=== PATIENT | female | born 1990 | race Caucasian/White ===

== ENCOUNTER 2017-05-15 13:30 | Emergency (ER) | payer SELFPAY ==
[2017-05-15] MEDS ORDERED: NORMAL SALINE 1000 ML 1,000 ML IV ONE (14:54)
[2017-05-15 15:26] LABS: ABSOLUTE LYMPHOCYTES (AUTO) 1.4 10^3/uL (0.5-4.7); ABSOLUTE MONOCYTES (AUTO) 0.8 10^3/uL (0.1-1.4); ABSOLUTE NEUT (AUTO) 6.4 10^3/uL (1.7-8.2); BASOPHILS % (AUTO) 0.3 % (0-2); EOSINOPHILS % (AUTO) 0.2 % (0-6); HEMATOCRIT 37.6 % (36.0-47.0); HGB HCT DIFFERENCE 1.4; LYMPHOCYTES % (AUTO) 16.3 % (13-45); MEAN CORPUSCULAR HEMOGLOBIN 30.5 pg (27.0-33.4); MEAN CORPUSCULAR HGB CONC 34.5 g/dL (32.0-36.0); MEAN CORPUSCULAR VOLUME 88 fl (80-97); MONOCYTES % (AUTO) 9.1 % (3-13); RED BLOOD COUNT 4.26 10^6/uL (3.72-5.28); RED CELL DISTRIBUTION WIDTH 13.8 % (11.5-14.0); SEGMENTED NEUTROPHILS % (AUTO) 74.1 % (42-78); WHITE BLOOD COUNT 8.7 10^3/uL (4.0-10.5)
[2017-05-15 15:49] LABS: ALANINE AMINOTRANSFERASE 82 U/L (9-52); ALBUMIN 4.3 g/dL (3.5-5.0); ALKALINE PHOSPHATASE 52 U/L (38-126); ANION GAP 13 (5-19); ASPARTATE AMINO TRANSFERASE 47 U/L (14-36); BILIRUBIN,DIRECT 0.4 mg/dL (0.0-0.4); BILIRUBIN,TOTAL 0.6 mg/dL (0.2-1.3); BLOOD UREA NITROGEN 9 mg/dL (7-20); CALCIUM 9.4 mg/dL (8.4-10.2); CARBON DIOXIDE 27 mmol/L (22-30); CHLORIDE 100 mmol/L (98-107); CREATININE RESULT 0.73 mg/dL (0.52-1.25); GLUCOSE 84 mg/dL (75-110); POTASSIUM 4.1 mmol/L (3.6-5.0); SODIUM 140.3 mmol/L (137-145); TOTAL PROTEIN 7.4 g/dL (6.3-8.2)
[2017-05-15] MEDS ORDERED: HYDROCODONE/ACETAMINOPHEN 5-325 MG TABLET PO ONE (15:53)
[2017-05-15 16:25] LABS: AMORPHOUS SEDIMENT,URINE TRACE /HPF; APPEARANCE,URINE SLIGHTLY-CLOUDY; BILIRUBIN,URINE NEGATIVE (NEGATIVE); GLUCOSE, URINE NEGATIVE (NEGATIVE); KETONES,URINE NEGATIVE (NEGATIVE); LEUKOCYTE ESTERASE,URINE MODERATE (NEGATIVE); NITRITE,URINE NEGATIVE (NEGATIVE); PROTEIN,URINE NEGATIVE (NEGATIVE); URINE SPECIFIC GRAVITY 1.014; UROBILINOGEN,URINE NEGATIVE mg/dL (<2.0)
--- NOTE | 2017-05-15 17:45 | RADIOLOGY REPORT (SQ) ---
EXAM DESCRIPTION: CT ABD/PELVIS WITH IV ONLY COMPLETED DATE/TIME: 05/15/2017 5:08 pm REASON FOR STUDY: rlq pain COMPARISON: None. TECHNIQUE: CT scan of the abdomen and pelvis performed using helical scanning technique with dynamic intravenous contrast injection. No oral contrast. Images reviewed with lung, soft tissue, and bone windows. Reconstructed coronal and sagittal MPR images reviewed. Delayed images for evaluation of the urinary system also acquired. All images stored on PACS. All CT scanners at this facility use dose modulation, iterative reconstruction, and/or weight based d osing when appropriate to reduce radiation dose to as low as reasonably achievable (ALARA). [facility]: Dose Right [facility]: CareDose [facility]: Dose Right [facility]: Teradose 4D [facility]: [employer] CONTRAST TYPE AND DOSE: contrast/concentration: Isovue 370.00 mg/ml; Total Contrast Delivered: 81.0 ml; Total Saline Delivered: 58.0 ml RENAL FUNCTION: Creatinine 0.7 BUN 9 RADIATION DOSE: Up-to-date CT equipment and radiation dose reduction techniques were employed. CTDIv ol: 7.6 - 10.4 mGy. DLP: 960 mGy-cm.. LIMITATIONS: None. FINDINGS: LOWER CHEST: No significant findings. No nodules or infiltrates. LIVER: Normal size. No masses. No dilated ducts. SPLEEN: Normal size. No focal lesions. PANCREAS: No masses. No significant calcifications. No adjacent inflammation or peripancreatic fluid collections. Pancreatic duct not dilated. GALLBLADDER: No identified stones by CT criteria. No inflammatory changes to suggest cholecystitis. ADRENAL GLANDS: No significant masses or asymmetry. RIGHT KIDNEY AND URETER: No solid masses. No significant calcifications. No hydronephrosis or hyd roureter. LEFT KIDNEY AND URETER: No solid masses. No significant calcifications. No hydronephrosis or hydr oureter. AORTA AND VESSELS: No aneurysm. No dissection. Renal arteries, SMA, celiac without stenosis. RETROPERITONEUM: No retroperitoneal adenopathy, hemorrhage or masses. BOWEL AND PERITONEAL CAVITY: No masses or inflammatory changes. No free fluid or peritoneal masses. APPENDIX: The appendix appears to be of normal caliber but is not seen in its entirety. There is no inflammatory mass in the right lower quadrant. PELVIS: No mass. No free fluid. Normal bladder. ABDOMINAL WALL: No masses. No hernias. BONES: No significant or acute findings. OTHER: No other significant finding. IMPRESSION: Appendix as described. No other significant findings in the abdomen or pelvis. TECHNICAL DOCUMENTATION: JOB ID: [id number] Quality ID # [id number]: Final reports with documentation of one or more dose reduction techniques (e.g., Au tomated exposure control, adjustment of the mA and/or kV according to patient size, use of iterative reconstruction technique) 2010 [employer]- All Rights Reserved
[2017-05-15] MEDS ORDERED: PREDNISONE 20 MG TABLET PO ONE (18:13)
--- NOTE | 2017-05-15 18:13 | ER Document Report ---
ED General - General Chief Complaint: Abdominal Pain Stated Complaint: SORE THROAT Time Seen by Provider: 05/15/17 14:53 Mode of Arrival: Ambulatory Information source: Patient Notes: Patient presents with fever and severe sore throat. She also has some right lower quadrant abdominal pain. Pain in the throat is worse with swallowing and better when she does not swallow. It is a sharp and burning sensation. It is severe and constant. She states it feels similar to mono and strep throat that she has had before. She has had some nausea but no vomiting. She has had decreased appetite. No problems with vaginal discharge or bleeding. TRAVEL OUTSIDE OF THE [place] IN LAST 30 DAYS: No - Related Data Allergies/Adverse Reactions: ketorolac [From Toradol] Allergy (Verified 05/15/17 14:31) morphine [Morphine] Allergy (Verified 05/15/17 13:48) rash tramadol Allergy (Verified 05/15/17 14:32) Past Medical History - General Information source: Patient - Social History Smoking Status: Never Smoker Chew tobacco use (# tins/day): No Frequency of alcohol use: None Drug Abuse: None Family History: Reviewed & Not Pertinent Patient has suicidal ideation: No Patient has homicidal ideation: No Renal/ Medical History: Denies: Hx Peritoneal Dialysis GI Medical History: Reports: Hx Hepatitis - C Psychiatric Medical History: Reports: Hx Depression Infectious Medical History: Reports: Hx Hepatitis - C Past Surgical History: Reports: Hx Section, Hx Tubal Ligation - Immunizations Hx Diphtheria, Pertussis, Tetanus Vaccination: No - unknown Review of Systems - Review of Systems Constitutional: Chills, Fever EENT: denies: Nose congestion, Nose discharge Cardiovascular: denies: Chest pain, Palpitations Respiratory: Cough. denies: Short of breath -: Yes All other systems reviewed and negative Physical Exam - Vital signs Vitals: Temp Pulse Resp BP Pulse Ox 99.5 F 102 H 12 116/99 H 98 05/15/17 13:47 05/15/17 13:47 05/15/17 13:47 05/15/17 13:47 05/15/17 13:47 Interpretation: Hypertensive - General General appearance: Appears well, Alert In distress: None - HEENT Head: Normocephalic, Atraumatic Eyes: Normal Pupils: PERRL Nasal: Normal Mouth/Lips: Normal Mucous membranes: Moist Pharynx: Erythema, Exudate Neck: Normal - Respiratory Respiratory status: No respiratory distress Chest status: Nontender Breath sounds: Normal Chest palpation: Normal - Cardiovascular Rhythm: Regular Heart sounds: Normal auscultation Murmur: No - Abdominal Inspection: Normal Distension: No distension Bowel sounds: Normal Tenderness: Other - Patient has right lower quadrant tenderness to palpation no rebound or guarding Organomegaly: No organomegaly - Back Back: Normal, Nontender - Extremities General upper extremity: Normal inspection, Nontender, Normal color, Normal ROM , Normal temperature General lower extremity: Normal inspection, Nontender, Normal color, Normal ROM , Normal temperature, Normal weight bearing. No: Lelia's sign - Neurological Neuro grossly intact: Yes Cognition: Normal Orientation: AAOx4 [place] Coma Scale Eye Opening: Spontaneous [place] Coma Scale Verbal: Oriented [place] Coma Scale Motor: Obeys Commands [place] Coma Scale Total: 15 Speech: Normal Motor strength normal: LUE, RUE, LLE, RLE Sensory: Normal - Psychological Associated symptoms: Normal affect, Normal mood - Skin Skin Temperature: Warm Skin Moisture: Dry Skin Color: Normal Course - Vital Signs Vital signs: Temp Pulse Resp BP Pulse Ox 99.5 F 102 H 12 116/99 H 98 05/15/17 13:47 05/15/17 13:47 05/15/17 13:47 05/15/17 13:47 05/15/17 13:47 - Laboratory Result Diagrams: 05/15/17 15:06 05/15/17 15:06 Laboratory results interpreted by me: 05/15/17 05/15/17 15:06 15:06 AST 47 H ALT 82 H Urine Blood SMALL H Ur Leukocyte Esterase MODERATE H - Diagnostic Test Radiology reviewed: Image reviewed, Reports reviewed - Abdominal CT scan shows no evidence of appendicitis Discharge - Discharge Clinical Impression: Strep throat Condition: Stable Disposition: HOME, SELF-CARE Instructions: Strep Throat ([facility]) Additional Instructions: Please call your primary care physician as soon as possible to arrange follow-up Your blood pressure is mildly elevated. Please have this rechecked within 1 week by your physician. Prescriptions: Amoxicillin 500 mg PO TID 10 Days #30 capsule Prednisone [Deltasone 20 mg Tablet] 3 tab PO DAILY 5 Days tablet Forms: Elevated Blood Pressure, Return to Work Referrals: JANEEN LOYOLA MD [COMMUNITY BASED STAFF] - Follow up in 1 week
[2017-05-15 19:18] VITALS: BP 108/68
== END 2017-05-15 18:36 | disposition home or self-care (01) ==
LOC: ER 13:30
DX: J02.0 Streptococcal pharyngitis (principal); R10.31 Right lower quadrant pain; R11.0 Nausea; R63.0 Anorexia; R50.9 Fever, unspecified; R05 Cough; Z88.8 Allergy status to other drugs, medicaments and biological substances; Z88.5 Allergy status to narcotic agent
CPT/HCPCS: 99284; 96360; 36415; 87880; 85025; 81025; 80053; 81001; 74177; J7512; J7030